=== PATIENT | female | born 2000 | race Caucasian/White ===

== ENCOUNTER 2022-09-16 12:55 | Emergency (ER) | payer BC, SELFPAY ==
[2022-09-16 13:02] VITALS: BP 117/72; PULSE 106; RESP 20; TEMP 36.8; O2SAT 100
--- NOTE | 2022-09-16 13:11 | ED.SKABFB ---
HPI - Skin/Abscess/Foreign Bdy General Chief complaint: Skin/Abscess/Foreign Body Stated complaint: spot on face Time Seen by Provider: 09/16/22 13:00 Source: patient, family and RN notes reviewed History of Present Illness HPI narrative: Patient is a 21-year-old female presents to Urgent Care with her mother with complaints of a sore to the left side of her cheek. Patient states that she noticed it Saturday as a small pimple and on Saturday it was open and larger. 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 No other acute complaints. No acute distress noted. Patient and mother aware of the plan of care. Some parts of this dictation were generated by voice recognition software and may contain typographical and/or grammatical inaccuracies. Related Data Allergies Allergy/AdvReac Type Severity Reaction Status Date / Time No Known Allergies Allergy Verified 09/16/22 13:08 Review of Systems Review of Systems: CONSTITUTIONAL: Denies fever, chills, or sweats. EYES: Denies visual changes, redness, or discharge. ENT: Denies rhinorrhea, congestion, sore throat, or otalgia. CARDIOVASCULAR: Denies chest pain, palpitations, or edema. RESPIRATORY: Denies cough or dyspnea. GASTROINTESTINAL: Denies abdominal pain, nausea, vomiting, or diarrhea. GENITOURINARY: Denies dysuria or hematuria. SKIN: Reports of an open sore on the left cheek MUSCULOSKELETAL: Denies back pain, joint pain, or myalgia. NEUROLOGIC: Denies headache, numbness, or weakness. All other systems reviewed are negative, except as documented in HPI. PMFSH Comments At the time of my signature, I reviewed and agree with the nursing past medical, surgical, social, and family history. There is no relevant family history pertinent to the patient complaint. Exam Narrative: GENERAL: This is a well-nourished, well-developed patient, in no apparent distress. HEAD: normocephalic, atraumatic. NOSE: External nose normal with no obvious nasal discharge, nares without redness, no rhinorrhea. THROAT: Mucous membranes moist, NECK: Neck supple SKIN: 1.5 cm open area of impetigo to the left cheek with surrounding erythema. Warm, intact with no suspicious lesions or rash, good texture and turgor. NEURO: awake, alert, and oriented to person, place and time. There were no obvious focal neurologic abnormalities. EXTREMITIES: No clubbing, cyanosis, or edema. Course Course Level of Care: Express Care Visit Vital Signs Vital signs: Vital Signs Temperature 98.2 F 09/16/22 13:02 Pulse Rate 106 H 09/16/22 13:02 Respiratory Rate 20 09/16/22 13:02 Blood Pressure 117/72 09/16/22 13:02 Pulse Oximetry 100 09/16/22 13:02 Oxygen Delivery Room Air 09/16/22 13:02 Temperature 98.2 F 09/16/22 13:02 Pulse Rate 106 H 09/16/22 13:02 Respiratory Rate 20 09/16/22 13:02 Blood Pressure 117/72 09/16/22 13:02 Pulse Oximetry 100 09/16/22 13:02 Oxygen Delivery Room Air 09/16/22 13:02 Reviewed MDM - Skin/Abscess/Foreign Bdy MDM Narrative Medical decision making narrative: Advised patient to use plain dial soap and water to cleanse the face and do not use reuse a pull towels. Area appears to be impetigo. Advised patient to use the prescription cream to the affected area and complete the oral antibiotic regimen as prescribed. Be sure to eat and drink with medication. Follow-up with your PCP within 2-5 days or for worsening symptoms or failure to improve. Differential Diagnosis Differential diagnosis: Likely abscess of skin or subcutaneous tissue, viral exanthem, dermatophytosis, urticaria, herpes zoster, allergic reaction to drug, cellulitis, impetigo and contact dermatitis Critical Care Time Critical Care Time Critical Care Time: No Discharge Plan Discharge Clinical Impression: Impetigo Patient Disposition: Home, Self-Care Condition: Stable Instructions: Antibiotic Form, Impetigo (DC) Additiona
== END 2022-09-16 13:32 | disposition home or self-care (01) ==
PROVIDERS: Emergency Provider Nurse Practitioner Family; PCP Pediatrics
DX: L01.00 Impetigo, unspecified (principal)
CPT/HCPCS: 99203; G0463